=== PATIENT | male | born 1980 | race Caucasian/White ===

== ENCOUNTER 2021-03-17 19:13 | Inpatient (IN) | payer MEDICAID, SELFPAY ==
[~2021-03-17] VITALS: Ht 177.8 cm; Wt 117.6 kg
[~2021-03-17 19:13] MED LIST: AMBI5TAB; DEPA250T3; LITH300T2
[2021-03-17] MEDS ORDERED: COLDLIQ8 PO (19:22)
[2021-03-18] MEDS ORDERED: ACETAMINOPHEN TAB 650MG DOSE (2X325MG) PO ONE (04:20)
[2021-03-18] MEDS: COMBIVENT RESPIMAT 100-20MCG INHALER 4GM INH SCH ×3 (05:15→08:36)
[2021-03-18 05:24] LABS: BASO % 0.2 % (0.0-1.0); HEMATOCRIT 44.6 % (42.0-52.0); HEMOGLOBIN 15.1 g/dl (13.5-17.5); LYMPH # 1.1 10^3/uL (1.5-5.0); LYMPH % 20.3 % (24.0-44.0); MEAN CORPUSCULAR HEMOGLOBIN 30.3 pg (27.0-33.0); MEAN CORPUSCULAR HGB CONC 33.9 g/dl (32.0-36.5); MEAN CORPUSCULAR VOLUME 89.4 fl (80.0-96.0); MONO # 0.4 10^3/uL (0.0-0.8); MONO % 6.8 % (2.0-8.0); NEUTROPHILS # 3.8 10^3/uL (1.5-8.5); NEUTROPHILS % 72.1 % (36.0-66.0); PLATELET COUNT, AUTOMATED 190 10^3/uL (150-450); RED BLOOD COUNT 4.99 10^6/uL (4.30-6.10); WHITE BLOOD COUNT 5.3 10^3/uL (4.0-10.0)
[2021-03-18 05:59] LABS: ALBUMIN 3.7 GM/DL (3.2-5.2); ALT/SGPT 187 U/L (12-78); BILIRUBIN,DIRECT 0.2 MG/DL (0.0-0.2); BILIRUBIN,TOTAL 0.5 MG/DL (0.2-1.0); BLOOD UREA NITROGEN 16 MG/DL (7-18); CALCIUM LEVEL 8.5 MG/DL (8.5-10.1); CARBON DIOXIDE LEVEL 26 MEQ/L (21-32); CHLORIDE LEVEL 100 MEQ/L (98-107); CREATININE FOR GFR 0.96 MG/DL (0.70-1.30); GLOMERULAR FILTRATION RATE > 60.0 (>60); GLUCOSE, FASTING 118 MG/DL (70-100); POTASSIUM SERUM 4.2 MEQ/L (3.5-5.1); SODIUM LEVEL 134 MEQ/L (136-145); TOTAL PROTEIN 7.7 GM/DL (6.4-8.2)
[2021-03-18] MEDS ORDERED: dexameTHASONE 20MG/5ML VIAL (J1100 PER 1MG) IV ONE (06:10)
[2021-03-18] MEDS ORDERED: [UNRECOGNIZED DRUG - CODE] PO (06:45)
[2021-03-18] MEDS ORDERED: MUCI600T31 PO (06:45)
[2021-03-18] MEDS ORDERED: HOME MED LIST COMPLETE! XX SCH (06:45)
[2021-03-18] MEDS ORDERED: ALBUTEROL 90 MCG/ACT 8GM HFA INHALER INH PRN (07:40)
--- OUTSIDE RECORDS SUMMARY | 2021-03-18 08:00 | CCD ---
Author Author [facility] Address Unknown Phone Unavailable Support Name Relationship Address Phone UE Next Of Kin Unknown Unavailable MAURA BRADSHAW Next Of Kin [id number] [facility] [address] [place] [address] Re-disclosure Warning The records that you are about to access may contain information from federally-assisted alcohol or drug abuse programs. If such information is present, then the following federally mandated warning applies: This information has been disclosed to you from records protected by federal confidentiality rules (42 CFR part 2). The federal rules prohibit you from making any further disclosure of this information unless further disclosure is expressly permitted by the written consent of the person to whom it pertains or as otherwise permitted by 42 CFR part 2. A general authorization for the release of medical or other information is NOT sufficient for this purpose. The Federal rules restrict any use of the information to criminally investigate or prosecute any alcohol or drug abuse patient.The records that you are about to access may contain highly sensitive health information, the redisclosure of which is protected by Article 27-F of the [facility] Public Health law. If you continue you may have access to information: Regarding HIV / AIDS; Provided by facilities licensed or operated by the [facility] Office of Mental Health; or Provided by the [facility] Office for People With Developmental Disabilities. If such information is present, then the following [facility] mandated warning applies: This information has been disclosed to you from confidential records which are protected by state law. State law prohibits you from making any further disclosure of this information without the specific written consent of the person to whom it pertains, or as otherwise permitted by law. Any unauthorized further disclosure in violation of state law may result in a fine or group home sentence or both. A general authorization for the release of medical or other information is NOT sufficient authorization for further disc losure. Family History Family Member Name Family Member Gender Family Member Status Date o f Status Description Data Source(s) Unknown Unknown Problem [facility] ([facility]) Medications No Information Insurance Providers Payer name Policy type / Coverage type Policy ID Covered green party ID Covered green party's relationship to logan Policy [place] Plan Information SELF PAY ONLY [id number] SP [id number] [facility] MEDICAID [id number] SP [id number] BCBS/Blue Card Commercial [id number] Self [id number] Problems, Conditions, and Diagnoses No Information Surgeries/Procedures No Information Results No Information Social History No Information
[2021-03-18 08:26] LABS: RSV AMPLIFICATION NEGATIVE (NEGATIVE)
[2021-03-18 08:49] LABS: C REACTIVE PROTEIN QUANTITATIV 2.62 MG/DL (0.00-0.30); FERRITIN 1402 NG/ML (26-388); LDH LACTATE DEHYDROGENASE 452 U/L (87-241)
[2021-03-18 09:32] LABS: INR 0.94
[2021-03-18 09:33] LABS: PARTIAL THROMBOPLASTIN TIME 29.8 SECONDS (25.9-37.0)
[2021-03-18 09:35] LABS: D-DIMER QUANT 495.72 ng/ml (<500)
[2021-03-18] MEDS ORDERED: REMDESIVIR 200 MG in NS 250 ML IV ONE (12:00)
[2021-03-18 12:48] VITALS: O2SAT 91
[2021-03-18 12:50] VITALS: BP 159/96
[2021-03-18] MEDS ORDERED: SODIUM CHLORIDE 0.9% INJ 10 ML SYR IV ONE (14:00)
[2021-03-18] MEDS: ENOXAPARIN 40MG/0.4ML SYRINGE (J1650 PER 10MG) SC SCH (14:28)
[2021-03-18] MEDS: guaiFENesin ER 600 MG TAB PO PRN ×2 (14:29→22:49)
[2021-03-18] MEDS: dexameTHASONE 4 MG/ML 1ML VIAL (J1100 PER 1MG) IV SCH (14:29)
[2021-03-18] MEDS: ASPIRIN 81MG ENTERIC TABLET PO SCH (14:29)
--- NOTE | 2021-03-18 15:49 | HPEPDOC ---
[facility] Medical History & Physical Date of Admission Mar 18, 2021 Date of Service: Mar 18, 2021 Attending Physician: SANDRA DAVIS MD History and Physical CHIEF COMPLAINT: SOB, fever, congestion, myalgias HISTORY OF PRESENT ILLNESS: 41 yo M w/ obesity and no PCP with rare contact with medical system who presented with 3d of history of generalized body aches, congestion, fever and now SOB who presented to the ED and was initially recommended for MABs but while in the ED became hypoxemic and is now being admitted for covid-19 infection with associated hypoxemic respiratory failure. On presentation he was hemodynamically stable but febrile to 101.5. He was initially stable on room air but became hypoxemic and is now requiring 4L NC for a saturation >90%. Workup was notable for unremarkable and BMP with mild transaminitis. WBC 5.3, hgb 15.1, platelets 190, na 134, K 4.2, Cr 0.96. He was given 6mg of dexamethasone, combivent and placed on supplemental oxygen and is now being admitted for covid-19 infection with acute hypoxemic respiratory failure. PAST MEDICAL HISTORY: MDD with poor impulse control Obesity PAST SURGICAL HISTORY: None SOCIAL HISTORY: Tobacco use: None ETOH: None Illicit drug use: None FAMILY HISTORY: Depression and history of aggression per chart reports ALLERGIES: Please see below. REVIEW OF SYSTEMS: 10 point of ROS was otherwise negative except as noted in the HOME MEDICATIONS: Please see below. PHYSICAL EXAMINATION: VITAL SIGNS: see below GENERAL APPEARANCE: Obese, NAD, on 4L NC HEENT: NCAT, EOMI, MMM CARDIOVASCULAR: RRR, no m/r/g LUNGS: CTAB, no wheezing or rales ABDOMEN: Obese, soft, normoactive bowel sounds, NTND EXTREMITIES: WWP, no LE edema, 2+ DP pulses NEUROLOGICAL: CN3-12 intact, clear speech with out dysarthria, 5/5 strength throughout, nonfocal examination PSYCHIATRIC: Aox3 LABORATORY DATA: Please see below for full details, otherwise summarized above IMAGING: None. CXR ordered. MICROBIOLOGY: Please see below. ASSESSMENT: 41 yo M who presented with generalized body aches, congestion, fever and now SOB and was initially recommended for MABs but while in the ED became hypoxemic and is now being admitted for covid-19 infection with associated hypoxemic respiratory failure. PLAN: Covid-19 PNA w/ associated acute hypoxemic respiratory failure -likely viral PNA, f/u CXR report, per verbal report (no images or report yet available to me) has bilateral pleural effusions -supplemental O2 to goal >90% -check O2 sats Q4H with vitals -droplet precautions -start remdesevir, day 1 -start dexamethasone, day 1 -albuterol mdi q4hp -acetaminophen 650mg Q6hP for fever and pain -incentive spirometer -awake proning -check DDimer, procalcitonin, ferritin and covid inflammatory markers Q2D per protocol -will also check mycoplasma, legionella and strep for potential superimposed bacterial PNA though my suspicion is low, will not start empiric abx at this time -ASA 81 mg daily -DVT ppx with lovenox 40mg daily Dispo: inpatient med/surg, likely home after clinical improvement. Will need a PCP. Vital Signs Vital Signs Date Time Temp Pulse Resp B/P (MAP) Pulse Ox O2 Delivery O2 Flow Rate FiO2 03/18/21 05:15 105 20 03/18/21 04:35 Nasal Cannula 2.0 03/17/21 20:51 90 03/17/21 19:15 101.5 131/80 (97) Laboratory Data Labs 24H Laboratory Tests 2 03/18/21 04:58: Immature Granulocyte % (Auto) 0.6, Neutrophils (%) (Auto) 72.1H, Lymphocytes (%) (Auto) 20.3L, Monocytes (%) (Auto) 6.8, Eosinophils (%) (Auto) 0.0, Basophils (%) (Auto) 0.2, Neutrophils # (Auto) 3.8, Lymphocytes # (Auto) 1.1L, Monocytes # (Auto) 0.4, Eosinophils # (Auto) 0.0, Basophils # (Auto) 0.0, Nucleated Red Blood Cells % (auto) 0.0, Anion Gap 8, Glomerular Filtration Rate > 60.0, Calcium Level 8.5, Total Bilirubin 0.5, Direct Bilirubin 0.2, Aspartate Amino Transf (AST/SGOT) 109H, Alanine Aminotransferase (ALT/SGPT) 187H, Alkaline Phosphatase 75, Total Protein 7.7, Albumin 3.7, Albumin/Globulin Ratio 0.9 03/18/21 07:34: CBC/BMP Laboratory Tests 03/18/21 04:58 Microbiology Microbiology 03/18/21 Blood Culture, Received Pending Home Medications Scheduled PRN Guaifenesin (Mucinex) 600 Mg Tab.er.12h, 600 MG PO BID PRN for CONGESTION Phenylephrine/Dm/Acetaminop/GG (Vicks Dayquil Severe Cold-Flu) 1 Each Tablet, 2 TAB PO DAILY PRN for COLD SYMPTOMS Allergies Coded Allergies: No Known Allergies (Verified , 01/07/09) A-FIB/CHADSVASC A-FIB History Current/History of A-Fib/PAF?: No Current PO Anticoag Therapy: No Age/Risk Factor Scoring CHADSVASC: CHADSVASC Response (Comments) Value Age Risk Factor Age < 65 years old 0 Gender Risk Factor Male 0 Hx of CHF No 0 Hx of HTN No 0 Hx of Stroke/TIA/or VTE No 0 Hx of Diabetes No 0 Hx of Vascular Disease No 0 Total 0 Treatment Treatment ordered: NONE Reason Anticoagulant not given: Not indicated/[id number] SANDRA DAVIS MD Mar 18, 2021 08:08
[2021-03-18 22:30] VITALS: BP 142/76; O2SAT 91
[2021-03-19] VITALS: O2SAT 92
[2021-03-19 05:00] VITALS: BP 141/58
[2021-03-19] MEDS: ACETAMINOPHEN TAB 650MG DOSE (2X325MG) PO PRN ×2 (05:03→22:13)
[2021-03-19 05:54] LABS: BASO % 0.1 % (0.0-1.0); HEMATOCRIT 43.2 % (42.0-52.0); HEMOGLOBIN 14.4 g/dl (13.5-17.5); LYMPH # 1.3 10^3/uL (1.5-5.0); LYMPH % 15.1 % (24.0-44.0); MEAN CORPUSCULAR HEMOGLOBIN 30.1 pg (27.0-33.0); MEAN CORPUSCULAR HGB CONC 33.3 g/dl (32.0-36.5); MEAN CORPUSCULAR VOLUME 90.4 fl (80.0-96.0); MONO # 0.6 10^3/uL (0.0-0.8); MONO % 7.3 % (2.0-8.0); NEUTROPHILS # 6.5 10^3/uL (1.5-8.5); NEUTROPHILS % 77.1 % (36.0-66.0); PLATELET COUNT, AUTOMATED 233 10^3/uL (150-450); RED BLOOD COUNT 4.78 10^6/uL (4.30-6.10); WHITE BLOOD COUNT 8.4 10^3/uL (4.0-10.0)
[2021-03-19 06:23] LABS: ALBUMIN 3.1 GM/DL (3.2-5.2); ALT/SGPT 136 U/L (12-78); BILIRUBIN,DIRECT 0.1 MG/DL (0.0-0.2); BILIRUBIN,TOTAL 0.4 MG/DL (0.2-1.0); BLOOD UREA NITROGEN 18 MG/DL (7-18); CALCIUM LEVEL 8.9 MG/DL (8.5-10.1); CARBON DIOXIDE LEVEL 30 MEQ/L (21-32); CHLORIDE LEVEL 100 MEQ/L (98-107); CREATININE FOR GFR 0.88 MG/DL (0.70-1.30); GLOMERULAR FILTRATION RATE > 60.0 (>60); GLUCOSE, FASTING 108 MG/DL (70-100); MAGNESIUM LEVEL 2.3 MG/DL (1.8-2.4); SODIUM LEVEL 134 MEQ/L (136-145); TOTAL PROTEIN 7.4 GM/DL (6.4-8.2)
[2021-03-19] MEDS: ASPIRIN 81MG ENTERIC TABLET PO SCH (09:40)
[2021-03-19] MEDS: dexameTHASONE 4 MG/ML 1ML VIAL (J1100 PER 1MG) IV SCH (09:41)
[2021-03-19] MEDS: ENOXAPARIN 40MG/0.4ML SYRINGE (J1650 PER 10MG) SC SCH (09:41)
--- NOTE | 2021-03-19 11:24 | IPNPDOC ---
Text Note Date of Service The patient was seen on 03/19/21. NOTE SUBJECTIVE: -Episodic low grade temps overnight, on 5L NC, no acute complaints OBJECTIVE: VITAL SIGNS: see below GENERAL APPEARANCE: Obese, NAD, on 5L NC HEENT: NCAT, EOMI, MMM CARDIOVASCULAR: RRR, no m/r/g LUNGS: CTAB, no wheezing or rales, tachypneic with exertion ABDOMEN: Obese, soft, normoactive bowel sounds, NTND EXTREMITIES: WWP, no LE edema, 2+ DP pulses NEUROLOGICAL: CN3-12 intact, clear speech with out dysarthria, 5/5 strength throughout, nonfocal examination PSYCHIATRIC: Aox3 LABORATORY DATA: Reviewed WBC 8.4 Hgb 14.4 platelets 233 AST 60 ALT 138 Na 134 K 4 Cr 0.88 IMAGING: CXR: read and images still not uploaded in the EMR MICROBIOLOGY: Please see below. ASSESSMENT: 41 yo M who presented with generalized body aches, congestion, fever and now SOB and was initially recommended for MABs but while in the ED became hypoxemic and is now admitted for covid-19 pneumonia with associated hypoxemic respiratory failure. PLAN: Covid-19 PNA w/ associated acute hypoxemic respiratory failure -likely viral PNA w/o superimposed bacterial component - f/u CXR report, per verbal report (no images or report yet available to me), apparently has bilateral pleural effusions -supplemental O2 to goal >90% -check O2 sats Q4H with vitals -droplet precautions -remdesevir, day 2 -dexamethasone, day 2 -albuterol mdi q4hp -acetaminophen 650mg Q6hP for fever and pain -incentive spirometer -awake proning -check covid inflammatory markers Q2D per protocol -f/u mycoplasma, legionella and strep for potential superimposed bacterial PNA though my suspicion is low, will not start empiric abx at this time -ASA 81 mg daily -DVT ppx with lovenox 40mg daily Transaminitis: likely 2/2 covid-19 infection but also c/f for steatosis and fatty liver -abd US Dispo: inpatient med/surg, likely home after clinical improvement. Will need a PCP. VS,Fishbone, I+O VS, Fishbone, I+O Laboratory Tests 03/19/21 05:21 Vital Signs Date Time Temp Pulse Resp B/P (MAP) Pulse Ox O2 Delivery O2 Flow Rate FiO2 03/19/21 06:48 99.0 03/19/21 05:00 89 18 141/58 (85) 91 Nasal Cannula 5.0 I&O- Last 24 Hours up to 6 AM 03/19/21 06:00 Intake Total 300 ml Output Total 525 ml Balance -225 ml SANDRA DAVIS MD Mar 19, 2021 10:39
[2021-03-19] MEDS: REMDESIVIR 100 MG in NS 250 ML IV SCH (12:34)
[2021-03-19 14:00] VITALS: BP 132/72
[2021-03-19] MEDS: SODIUM CHLORIDE 0.9% INJ 10 ML SYR IV SCH (14:00)
[2021-03-19 22:00] VITALS: O2SAT 93
[2021-03-19] MEDS: guaiFENesin ER 600 MG TAB PO PRN (22:13)
[2021-03-19 22:15] VITALS: BP 120/62
[2021-03-20 04:04] VITALS: BP 105/65
[2021-03-20 06:29] LABS: BASO % 0.1 % (0.0-1.0); EOS % 0.1 % (0.0-3.0); HEMATOCRIT 42.1 % (42.0-52.0); HEMOGLOBIN 14.1 g/dl (13.5-17.5); LYMPH # 1.3 10^3/uL (1.5-5.0); LYMPH % 17.2 % (24.0-44.0); MEAN CORPUSCULAR HEMOGLOBIN 30.3 pg (27.0-33.0); MEAN CORPUSCULAR HGB CONC 33.5 g/dl (32.0-36.5); MEAN CORPUSCULAR VOLUME 90.5 fl (80.0-96.0); MONO # 0.8 10^3/uL (0.0-0.8); MONO % 10.6 % (2.0-8.0); NEUTROPHILS # 5.4 10^3/uL (1.5-8.5); NEUTROPHILS % 71.2 % (36.0-66.0); PLATELET COUNT, AUTOMATED 264 10^3/uL (150-450); RED BLOOD COUNT 4.65 10^6/uL (4.30-6.10); WHITE BLOOD COUNT 7.6 10^3/uL (4.0-10.0)
[2021-03-20 06:40] LABS: INR 0.87; PROTHROMBIN TIME 12.2 SECONDS (12.7-14.5)
[2021-03-20 06:41] LABS: PARTIAL THROMBOPLASTIN TIME 29.4 SECONDS (25.9-37.0)
[2021-03-20 07:05] LABS: ALBUMIN 2.8 GM/DL (3.2-5.2); ALT/SGPT 99 U/L (12-78); BILIRUBIN,DIRECT 0.1 MG/DL (0.0-0.2); BILIRUBIN,TOTAL 0.4 MG/DL (0.2-1.0); BLOOD UREA NITROGEN 15 MG/DL (7-18); CALCIUM LEVEL 8.5 MG/DL (8.5-10.1); CARBON DIOXIDE LEVEL 32 MEQ/L (21-32); CHLORIDE LEVEL 100 MEQ/L (98-107); CPK CREATINE PHOSPHOKINASE 249 U/L (39-308); FERRITIN 797 NG/ML (26-388); GLOMERULAR FILTRATION RATE > 60.0 (>60); GLUCOSE, FASTING 106 MG/DL (70-100); LDH LACTATE DEHYDROGENASE 338 U/L (87-241); MAGNESIUM LEVEL 2.1 MG/DL (1.8-2.4); NT-PRO BNP 37 PG/ML (<125); SODIUM LEVEL 136 MEQ/L (136-145); TOTAL PROTEIN 6.8 GM/DL (6.4-8.2); TROPONIN I < 0.02 NG/ML (< 0.10)
--- NOTE | 2021-03-20 09:23 | REP ---
INDICATION: DYSPNEA/COUGH/ + covid. COMPARISON: None. TECHNIQUE: Single portable AP view of the chest was performed. FINDINGS: There is poor ventilation. Small effusions are suspected with mild patchy bibasilar atelectasis/infiltrate. The lateral margins of the heart are not visualized. The mediastinal silhouette is grossly unremarkable. IMPRESSION: Suspect small effusions. There is mild patchy bibasilar atelectasis/infiltrate. A preliminary report was provided by virtual Radiology at the time of the exam. <Electronically signed by Toro Soria > 03/20/21 0919
[2021-03-20] MEDS: ENOXAPARIN 40MG/0.4ML SYRINGE (J1650 PER 10MG) SC SCH (09:48)
[2021-03-20] MEDS: ASPIRIN 81MG ENTERIC TABLET PO SCH (09:48)
[2021-03-20] MEDS: dexameTHASONE 4 MG/ML 1ML VIAL (J1100 PER 1MG) IV SCH (09:48)
--- NOTE | 2021-03-20 10:17 | IPNPDOC ---
Text Note Date of Service The patient was seen on 03/20/21. NOTE SUBJECTIVE: -No acute complaints. Afebrile. On 4L NC OBJECTIVE: VITAL SIGNS: see below GENERAL APPEARANCE: Obese, NAD, on 4L NC HEENT: NCAT, EOMI, MMM CARDIOVASCULAR: RRR, no m/r/g LUNGS: Diminished bases, no wheezing or rales, tachypneic with exertion ABDOMEN: Obese, soft, normoactive bowel sounds, NTND EXTREMITIES: WWP, no LE edema, 2+ DP pulses NEUROLOGICAL: CN3-12 intact, clear speech with out dysarthria, 5/5 strength throughout, nonfocal examination PSYCHIATRIC: Aox3 LABORATORY DATA: Reviewed, stable IMAGING: CXR: read and images still not uploaded in the EMR MICROBIOLOGY: Please see below. ASSESSMENT: 41 yo M who presented with generalized body aches, congestion, fever and now SOB and was initially recommended for MABs but while in the ED became hypoxemic and is now admitted for covid-19 pneumonia with associated hypoxemic respiratory failure. PLAN: Covid-19 PNA w/ associated acute hypoxemic respiratory failure -likely viral PNA w/o superimposed bacterial component - f/u CXR report, per verbal report (no images or report yet available to me), apparently has bilateral pleural effusions -supplemental O2 to goal >90% -check O2 sats Q4H with vitals -droplet precautions -remdesevir, day 3 -dexamethasone, day 3 -albuterol mdi q4hp -acetaminophen 650mg Q6hP for fever and pain -incentive spirometer -awake proning -check covid inflammatory markers Q2D per protocol -f/u mycoplasma, legionella and strep for potential superimposed bacterial PNA t ariel my suspicion is low, will not start empiric abx at this time -ASA 81 mg daily -DVT ppx with lovenox 40mg daily Transaminitis: likely 2/2 covid-19 infection but also c/f for steatosis and fatty liver -f/u abd US -improving Dispo: inpatient med/surg, likely home after clinical improvement. Will need a PCP. VS,Fishbone, I+O VS, Fishbone, I+O Laboratory Tests 03/20/21 06:05 Vital Signs Date Time Temp Pulse Resp B/P (MAP) Pulse Ox O2 Delivery O2 Flow Rate FiO2 03/20/21 04:04 98.4 75 20 105/65 (78) 92 Nasal Cannula 4.0 I&O- Last 24 Hours up to 6 AM 03/20/21 06:00 Intake Total 960 ml Output Total 2200 ml Balance -1240 ml SANDRA DAVIS MD Mar 20, 2021 10:17
[2021-03-20] MEDS: REMDESIVIR 100 MG in NS 250 ML IV SCH (12:52)
[2021-03-20] MEDS: SODIUM CHLORIDE 0.9% INJ 10 ML SYR IV SCH (12:53)
[2021-03-20 13:10] LABS: MYCOPLASMA PNEUMONIAE IgG 226 U/mL (0-99); MYCOPLASMA PNEUMONIAE IgM <770 U/mL (0-769)
[2021-03-20 14:00] VITALS: BP 105/64
[2021-03-20 19:32] VITALS: O2SAT 91
[2021-03-20 21:00] VITALS: BP 131/76
[2021-03-21] VITALS (9 sets, daily range): BP systolic 106–127; BP diastolic 64–77; O2SAT 90–96
[2021-03-21 07:05] LABS: BASO % 0.1 % (0.0-1.0); HEMATOCRIT 40.4 % (42.0-52.0); HEMOGLOBIN 13.5 g/dl (13.5-17.5); LYMPH # 1.4 10^3/uL (1.5-5.0); LYMPH % 16.5 % (24.0-44.0); MEAN CORPUSCULAR HEMOGLOBIN 30.1 pg (27.0-33.0); MEAN CORPUSCULAR HGB CONC 33.4 g/dl (32.0-36.5); MEAN CORPUSCULAR VOLUME 90.2 fl (80.0-96.0); MONO # 1.1 10^3/uL (0.0-0.8); MONO % 13.2 % (2.0-8.0); NEUTROPHILS # 5.7 10^3/uL (1.5-8.5); NEUTROPHILS % 69.6 % (36.0-66.0); PLATELET COUNT, AUTOMATED 304 10^3/uL (150-450); RED BLOOD COUNT 4.48 10^6/uL (4.30-6.10); WHITE BLOOD COUNT 8.2 10^3/uL (4.0-10.0)
[2021-03-21 07:19] LABS: BLOOD UREA NITROGEN 14 MG/DL (7-18); CALCIUM LEVEL 8.4 MG/DL (8.5-10.1); CARBON DIOXIDE LEVEL 31 MEQ/L (21-32); CHLORIDE LEVEL 104 MEQ/L (98-107); CREATININE FOR GFR 0.66 MG/DL (0.70-1.30); GLOMERULAR FILTRATION RATE > 60.0 (>60); GLUCOSE, FASTING 105 MG/DL (70-100); MAGNESIUM LEVEL 2.2 MG/DL (1.8-2.4); POTASSIUM SERUM 3.7 MEQ/L (3.5-5.1); SODIUM LEVEL 139 MEQ/L (136-145)
[2021-03-21] MEDS: ASPIRIN 81MG ENTERIC TABLET PO SCH (09:13)
[2021-03-21] MEDS: dexameTHASONE 4 MG/ML 1ML VIAL (J1100 PER 1MG) IV SCH (09:14)
[2021-03-21] MEDS: ENOXAPARIN 40MG/0.4ML SYRINGE (J1650 PER 10MG) SC SCH (09:14)
[2021-03-21 10:13] LABS: C REACTIVE PROTEIN QUANTITATIV 2.45 MG/DL (0.00-0.30); FERRITIN 734 NG/ML (26-388)
[2021-03-21 10:30] LABS: D-DIMER QUANT 499.81 ng/ml (<500)
[2021-03-21] MEDS: BARICITINIB 2MG TABLET (OLUMIANT) FOR EUA PO SCH (12:20)
[2021-03-21] MEDS: SODIUM CHLORIDE 0.9% INJ 10 ML SYR IV SCH (12:21)
[2021-03-21] MEDS: REMDESIVIR 100 MG in NS 250 ML IV SCH (12:21)
--- NOTE | 2021-03-21 12:47 | IPNPDOC ---
Text Note Date of Service The patient was seen on 03/21/21. NOTE SUBJECTIVE: -No acute complaints. Afebrile. -However now on 10L HFNC OBJECTIVE: VITAL SIGNS: see below GENERAL APPEARANCE: Obese, NAD, on 10L HFNC HEENT: NCAT, EOMI, MMM CARDIOVASCULAR: RRR, no m/r/g LUNGS: Diminished bases, no wheezing or rales, tachypneic with exertion ABDOMEN: Obese, soft, normoactive bowel sounds, NTND EXTREMITIES: WWP, no LE edema, 2+ DP pulses NEUROLOGICAL: CN3-12 intact, clear speech with out dysarthria, 5/5 strength throughout, nonfocal examination PSYCHIATRIC: Aox3 LABORATORY DATA: Reviewed, stable WBC 8.2 hgb 13.5 platelets 304 na 139 K 3.7 Cr 0.66 mag 2.2 procal <0.05 IMAGING: CXR: There is poor ventilation. Small effusions are suspected with mild patchy bibasilar atelectasis/infiltrate. The lateral margins of the heart are not visualized. The mediastinal silhouette is grossly unremarkable. IMPRESSION: Suspect small effusions. There is mild patchy bibasilar atelectasis/infiltrate. MICROBIOLOGY: Please see below. ASSESSMENT: 41 yo M who presented with generalized body aches, congestion, fever and now SOB and was initially recommended for MABs but while in the ED became hypoxemic and is now admitted for covid-19 pneumonia with associated hypoxemic respiratory failure. PLAN: Covid-19 PNA w/ associated acute hypoxemic respiratory failure - viral PNA w/o evidence of superimposed bacterial PNA at this time - -supplemental O2 to goal >90% -check O2 sats Q4H with vitals -droplet precautions -remdesevir, day 4 -dexamethasone, day 4 -albuterol mdi q4hp -acetaminophen 650mg Q6hP for fever and pain -incentive spirometer -awake proning -check covid inflammatory markers Q2D per protocol -Prior mycoplasma exposure, legionella and strep for potential pending, will not start empiric abx at this time -ASA 81 mg daily -DVT ppx with lovenox 40mg daily -CXR with mild patchy bibasilar atelectasis/infiltrate with small pleural effusions. Procalcitonin negative -Starting baracitinib, day #1, discussed with ID Transaminitis: likely 2/2 covid-19 infection but also c/f for steatosis and fatty liver -improving Dispo: inpatient med/surg, likely home after clinical improvement. Will need a PCP. VS,Fishbone, I+O VS, Fishbone, I+O Laboratory Tests 03/21/21 06:41 Vital Signs Date Time Temp Pulse Resp B/P (MAP) Pulse Ox O2 Delivery O2 Flow Rate FiO2 03/21/21 06:00 97.1 76 18 106/64 (78) 92 High Flow Cannula 10.0 I&O- Last 24 Hours up to 6 AM 03/21/21 06:00 Intake Total 480 ml Output Total 1800 ml Balance -1320 ml SANDRA DAVIS MD Mar 21, 2021 09:44
[2021-03-21] MEDS: ACETAMINOPHEN TAB 650MG DOSE (2X325MG) PO PRN (20:17)
[2021-03-22] VITALS: O2SAT 95
[2021-03-22 03:46] VITALS: O2SAT 93
[2021-03-22 06:00] VITALS: BP 107/74
[2021-03-22 07:43] LABS: HEMATOCRIT 41.8 % (42.0-52.0); MEAN CORPUSCULAR HEMOGLOBIN 30.5 pg (27.0-33.0); MEAN CORPUSCULAR HGB CONC 33.5 g/dl (32.0-36.5); MEAN CORPUSCULAR VOLUME 91.1 fl (80.0-96.0); PLATELET COUNT, AUTOMATED 402 10^3/uL (150-450); RED BLOOD COUNT 4.59 10^6/uL (4.30-6.10); WHITE BLOOD COUNT 6.4 10^3/uL (4.0-10.0)
[2021-03-22 07:55] LABS: INR 0.95; PROTHROMBIN TIME 13.1 SECONDS (12.7-14.5)
[2021-03-22 07:56] LABS: PARTIAL THROMBOPLASTIN TIME 28.2 SECONDS (25.9-37.0)
[2021-03-22 08:26] LABS: ATYPICAL LYMPH 7 % (0-5); LYMPHOCYTES 24 % (16-44); MONOCYTES 10 % (0-5); NEUTROPHILS 56 % (28-66); PLATELET ESTIMATE NORMAL (NORMAL)
[2021-03-22] MEDS: ENOXAPARIN 40MG/0.4ML SYRINGE (J1650 PER 10MG) SC SCH (08:56)
[2021-03-22] MEDS: dexameTHASONE 4 MG/ML 1ML VIAL (J1100 PER 1MG) IV SCH (08:56)
[2021-03-22 08:57] LABS: ALBUMIN 2.7 GM/DL (3.2-5.2); ALT/SGPT 123 U/L (12-78); BILIRUBIN,DIRECT 0.1 MG/DL (0.0-0.2); BILIRUBIN,TOTAL 0.5 MG/DL (0.2-1.0); BLOOD UREA NITROGEN 16 MG/DL (7-18); CALCIUM LEVEL 8.7 MG/DL (8.5-10.1); CARBON DIOXIDE LEVEL 32 MEQ/L (21-32); CHLORIDE LEVEL 104 MEQ/L (98-107); CPK CREATINE PHOSPHOKINASE 70 U/L (39-308); CREATININE FOR GFR 0.68 MG/DL (0.70-1.30); FERRITIN 804 NG/ML (26-388); GLOMERULAR FILTRATION RATE > 60.0 (>60); GLUCOSE, FASTING 97 MG/DL (70-100); LDH LACTATE DEHYDROGENASE 283 U/L (87-241); MAGNESIUM LEVEL 2.4 MG/DL (1.8-2.4); NT-PRO BNP 36 PG/ML (<125); SODIUM LEVEL 140 MEQ/L (136-145); TOTAL PROTEIN 6.8 GM/DL (6.4-8.2); TROPONIN I < 0.02 NG/ML (< 0.10)
[2021-03-22] MEDS: ASPIRIN 81MG ENTERIC TABLET PO SCH (08:57)
[2021-03-22] MEDS: BARICITINIB 2MG TABLET (OLUMIANT) FOR EUA PO SCH (08:57)
[2021-03-22] MEDS: SODIUM CHLORIDE 0.9% INJ 10 ML SYR IV SCH (13:00)
[2021-03-22 14:00] VITALS: BP 118/72
--- NOTE | 2021-03-22 14:27 | IPNPDOC ---
Text Note Date of Service The patient was seen on 03/22/21. NOTE SUBJECTIVE: -No acute complaints. Afebrile. -On 6L at present OBJECTIVE: VITAL SIGNS: see below GENERAL APPEARANCE: Obese, NAD, on 6L NC, continues to look well at this time HEENT: NCAT, EOMI, MMM CARDIOVASCULAR: RRR, no m/r/g LUNGS: Diminished bases, no wheezing or rales, tachypneic with exertion ABDOMEN: Obese, soft, normoactive bowel sounds, NTND EXTREMITIES: WWP, no LE edema, 2+ DP pulses NEUROLOGICAL: CN3-12 intact, clear speech with out dysarthria, 5/5 strength thr oughout, nonfocal examination PSYCHIATRIC: Aox3 LABORATORY DATA: Reviewed, stable procal <0.05 IMAGING: CXR: There is poor ventilation. Small effusions are suspected with mild patchy bibasilar atelectasis/infiltrate. The lateral margins of the heart are not visualized. The mediastinal silhouette is grossly unremarkable. IMPRESSION: Suspect small effusions. There is mild patchy bibasilar atelectasis/infiltrate. MICROBIOLOGY: Please see below. ASSESSMENT: 41 yo M who presented with generalized body aches, congestion, fever and now SOB and was initially recommended for MABs but while in the ED became hypoxemic and is now admitted for covid-19 pneumonia with associated hypoxemic respiratory failure. PLAN: Covid-19 PNA w/ associated acute hypoxemic respiratory failure - viral PNA w/o evidence of superimposed bacterial PNA at this time -supplemental O2 to goal >90% -check O2 sats Q4H with vitals -droplet precautions -remdesevir, day 5 -dexamethasone, day 5 -albuterol mdi q4hp -acetaminophen 650mg Q6hP for fever and pain -incentive spirometer -awake proning -check covid inflammatory markers Q2D per protocol -Prior mycoplasma exposure, legionella and strep for potential pending, will not start empiric abx at this time -ASA 81 mg daily -DVT ppx with lovenox 40mg daily -CXR with mild patchy bibasilar atelectasis/infiltrate with small pleural effusions. Procalcitonin negative -baracitinib, day #2, discussed with ID Transaminitis: likely 2/2 covid-19 infection but also c/f for steatosis and fatty liver -improving Dispo: inpatient med/surg, likely home after clinical improvement. Will need a PCP. VS,Fishbone, I+O VS, Fishbone, I+O Laboratory Tests 03/22/21 07:02 Vital Signs Date Time Temp Pulse Resp B/P (MAP) Pulse Ox O2 Delivery O2 Flow Rate FiO2 03/22/21 14:00 98.3 79 17 118/72 (87) 95 High Flow Cannula 5.0 I&O- Last 24 Hours up to 6 AM 03/22/21 06:00 Intake Total 1620 ml Output Total 1550 ml Balance 70 ml SANDRA DAVIS MD Mar 22, 2021 14:27
[2021-03-22] MEDS: REMDESIVIR 100 MG in NS 250 ML IV SCH (14:35)
[2021-03-22 20:00] VITALS: BP 117/59; O2SAT 95
[2021-03-22] MEDS: guaiFENesin ER 600 MG TAB PO PRN (21:14)
[2021-03-23 04:00] VITALS: BP_SYST 107; BP_SYST 109; BP_DIAS 60; BP_DIAS 70
[2021-03-23 06:49] LABS: HEMATOCRIT 42.1 % (42.0-52.0); HEMOGLOBIN 14.2 g/dl (13.5-17.5); MEAN CORPUSCULAR HEMOGLOBIN 30.5 pg (27.0-33.0); MEAN CORPUSCULAR HGB CONC 33.7 g/dl (32.0-36.5); MEAN CORPUSCULAR VOLUME 90.3 fl (80.0-96.0); RED BLOOD COUNT 4.66 10^6/uL (4.30-6.10); WHITE BLOOD COUNT 9.6 10^3/uL (4.0-10.0)
[2021-03-23 06:52] LABS: PLATELET COUNT, AUTOMATED 511 10^3/uL (150-450)
[2021-03-23 07:06] LABS: BLOOD UREA NITROGEN 15 MG/DL (7-18); CARBON DIOXIDE LEVEL 28 MEQ/L (21-32); CHLORIDE LEVEL 102 MEQ/L (98-107); CREATININE FOR GFR 0.76 MG/DL (0.70-1.30); GLOMERULAR FILTRATION RATE > 60.0 (>60); GLUCOSE, FASTING 93 MG/DL (70-100); MAGNESIUM LEVEL 2.4 MG/DL (1.8-2.4); POTASSIUM SERUM 3.8 MEQ/L (3.5-5.1); SODIUM LEVEL 139 MEQ/L (136-145)
[2021-03-23 07:44] LABS: ATYPICAL LYMPH 5 % (0-5); LYMPHOCYTES 24 % (16-44); MONOCYTES 9 % (0-5); NEUTROPHILS 62 % (28-66); PLATELET ESTIMATE INCREASED (NORMAL)
[2021-03-23] MEDS: ENOXAPARIN 40MG/0.4ML SYRINGE (J1650 PER 10MG) SC SCH (09:20)
[2021-03-23] MEDS: BARICITINIB 2MG TABLET (OLUMIANT) FOR EUA PO SCH (09:20)
[2021-03-23] MEDS: ASPIRIN 81MG ENTERIC TABLET PO SCH (09:20)
[2021-03-23] MEDS ORDERED: dexameTHASONE 20MG/5ML VIAL (J1100 PER 1MG) IV SCH (10:00)
[2021-03-23] MEDS ORDERED: PRED10TA2 PO (10:05)
--- NOTE | 2021-03-23 10:11 | DS.PDOC ---
Discharge Summary General Date of Admission Mar 18, 2021 at 07:39 Date of Discharge 03/23/21 Discharge [place] [address] March 23, 2021 RE: GENA RAY 82 To Whom It May Concern: Mr. Ray has been hospitalized from 03/18/21 to 03/23/21. He needs to be in quarantine until 04/07/21. Pt may return to work on 04/08/21 without activity restrictions. If questions should arise, pls call my office at [phone] anytime. Sincerely, Bibiana Barksdale MD Vital Signs/I&Os Vital Signs Date Time Temp Pulse Resp B/P (MAP) Pulse Ox O2 Delivery O2 Flow Rate FiO2 03/23/21 04:00 98.5 69 18 107/60 (76) 96 High Flow Cannula 3.0 I&O- Last 24 Hours up to 6 AM 03/23/21 06:00 Intake Total 2170 ml Output Total 2650 ml Balance -480 ml Laboratory Data Labs 24H Laboratory Tests 2 03/23/21 05:57: Neutrophils (%) (Auto) , Nucleated Red Blood Cells % (auto) 0.0, Neutrophils 62, Lymphocytes (Manual) 24, Monocytes (Manual) 9H, Atypical Lymphocytes 5, Red Blood Cell Morphology NORMAL, Platelet Estimate INCREASED, Anion Gap 9, Glomerular Filtration Rate > 60.0, Calcium Level 9.0, Magnesium Level 2.4 CBC/BMP Laboratory Tests 03/23/21 05:57 Microbiology Microbiology 03/18/21 Blood Culture - Final, Complete NO GROWTH AFTER 5 DAYS Discharge Medications Scheduled Prednisone (Prednisone) 10 Mg Tablet, 10 MG PO TAPER Take 4 tabs daily x 3 days, then 3 tabs daily x 3 days, then 2 tabs daily x 3 days, then 1 tab daily x 3 days and stop Scheduled PRN Guaifenesin (Mucinex) 600 Mg Tab.er.12h, 600 MG PO BID PRN for CONGESTION, (Reported) Phenylephrine/Dm/Acetaminop/GG (Vicks Dayquil Severe Cold-Flu) 1 Each Tablet, 2 TAB PO DAILY PRN for COLD SYMPTOMS, (Reported) Allergies Coded Allergies: No Known Allergies (Verified , 01/07/09) BIBIANA BARKSDALE MD Mar 23, 2021 10:11
--- NOTE | 2021-03-23 13:09 | DSES ---
DISCHARGE SUMMARY DATE OF ADMISSION: 03/18/2021 DATE OF DISCHARGE: 03/23/2021 PRIMARY DISCHARGE DIAGNOSES: 1. Coronavirus pneumonia. 2. Acute hypoxic respiratory failure secondary to coronavirus pneumonia. 3. Transaminitis secondary to coronavirus infection. DISCHARGE MEDICATIONS: - prednisone taper - Mucinex 600 mg twice a day - Vicks DayQuil as needed DISCHARGE INSTRUCTIONS: Primary care physician appointment within five days. Patient is to have quarantine until 03/28/2021, ten days from positive test. Patient's oxygen saturation at the bedside is 90-91% on room air. HOSPITAL COURSE: This is a 41-year-old male admitted on 03/18/2021 with history of major depression disorder, obesity, complained of shortness of breath, fever, congestion and myalgias. Temperature 101, requiring 4 liters of oxygen, saturating 90%. Patient was found to be hypoxic secondary to coronavirus with transaminitis on admission, admitted for intravenous (IV) Decadron, Remdesivir, Olumiant, and was started on aspirin and 40 mg of Lovenox for deep venous thrombosis (DVT) prophylaxis. Patient required high flow oxygen, up to 8 liters. On the fourth day, patient started to feel better, with less requirement for oxygen and 90-91% at the bedside on room air. The patient remained afebrile throughout the entire admission aside from admission of 101.5 and on 03/19/2021 of 100.1. The patient is eating without nausea, vomiting, diarrhea or abdominal pain. He is not hypoxic and denies any dyspnea on exertion. PHYSICAL EXAMINATION ON DISCHARGE: VITAL SIGNS: Temperature 98.5, pulse 69 sinus, respiratory rate 18, blood pressure 107/6, 96% on 3 liters nasal cannula, 90-91% on room air at the bedside. GENERAL: Patient is awake, alert, oriented, no distress. LUNGS: Diminished, but no crackles or rales. HEART: S1, S2. Sinus rhythm. ABDOMEN: Soft, nontender, nondistended. Positive bowel sounds. EXTREMITIES: No cyanosis, clubbing or pitting edema. LABORATORY DATA/IMAGING STUDIES/MICROBIOLOGY: Please see the chart. Time spent on discharge: 30 minutes. [facility]
== END 2021-03-23 14:07 | disposition home health service (06) | DRG 137 ==
LOC: M ED 19:13 → M ED INP 03-18 07:39 → ENRESERV 03-18 09:58 → M 4MAIN 03-18 12:48
PROVIDERS: ADMIT Internal Medicine; ATTEND Internal Medicine
PROC: XW033E5 Introduction of Remdesivir Anti-infective into Peripheral Vein, Percutaneous Approach, New Technology Group 5 (ICD-10-PCS; principal; 2021-03-18)
PROC: 3E0333Z Introduction of Anti-inflammatory into Peripheral Vein, Percutaneous Approach (ICD-10-PCS; 2021-03-18)
DX: U07.1 COVID-19 (principal); J96.01 Acute respiratory failure with hypoxia; J12.82 Pneumonia due to coronavirus disease 2019; E66.9 Obesity, unspecified; F32.9 Major depressive disorder, single episode, unspecified; R74.01 Elevation of levels of liver transaminase levels